=== PATIENT | female | born 1930 | race Caucasian/White ===

== ENCOUNTER → 2016-09-27 | Outpatient (CLI) | payer OTHER ==
[~2016-09-27] VITALS: Ht 160 cm; Wt 44.0 kg
[~2016-09-27] MED LIST: ACETAMINOPHEN-1 EAC1 PO; ALTACE10 M1 PO; ALTACE10 MG PO; ASPIRIN EC81 M1 PO; CALCIUM + VIT1 EACH PO; CENTRUM SILVER1 EAC4; FENTANYL PA50 MCG/HR TRANSDERM; FLONASE 0.05%50 MCG NASAL; LEVOTHYROXINE0.05 MG PO; LIPITOR PO; LIPITOR20 MG PO; MEGA RED PO; NASAL SPRAY30 ML; NORCO 5-325 TA1 EACH PO; PREDNISONE 20 M20 MG PO; PREVACID15 MG PO; PREVACID30 MG PO; REFRESH TEARS15 ML OPHTHALMIC; SINEMET 10-1001 EAC1; SINGULAIR 10 MG10 MG PO; SYSTANE 0.3-0.1 EACH GTT; VALIUM5 MG PO
--- NOTE | ~2016-09-27 | P ---
[facility] [place] [address] PROCEDURE REPORT Name: LEANNE DUFFY Room #: [facility] [id number] Admission: 09/27/16 Attend Phys: Preet Marin MD Discharge: Date of : 32 Report #: [id number] THIS REPORT FOR: //name// CC: Preet Reddy MD DATE OF SERVICE: 09/27/2016 BRIEF HISTORY: The patient is an 86-year-old woman well known to me with chronic, recurrent stricture upper esophagus for repeat dilation. PREOPERATIVE DIAGNOSES: Esophageal stricture and dysphagia. POSTOPERATIVE DIAGNOSES: 1. Moderately tight cervical esophageal stricture, benign appearing. 2. Small hiatus hernia. MEDICATIONS: Deep sedation with propofol per anesthesia. SPECIMEN: None. ESTIMATED BLOOD LOSS: About 3 mL. PROCEDURE: EGD with insertion of guidewire and Savary dilation of stricture over wire. FINDINGS: Prior to propofol sedation, procedure of upper endoscopy was discussed with the patient as well as potential risks and its complications. Upper endoscopy and dilation were discussed with the patient as well as potential risks, benefits and complications. She indicates she understands and desires to proceed. DESCRIPTION OF PROCEDURE: With the patient in left lateral decubitus position, we attempted to insert this Fuji video endoscope into the cervical esophagus; however, immediately upon entering the cricopharyngeus, there was a moderately tight stricture, which would not allow passage of the endoscope. I have been dilating this patient for over 20 years and in recent memory, I do not recall having this difficulty. The stricture was same, but I could see through the stricture, but the scope would not pass. It had smooth benign appearance. There was normal overlying mucosa. A Savary wire was advanced through the stricture and the scope withdrawn and she was dilated at 10, 11, 12 mm dilators. After passage of the 12 mm dilator, I was able to advance the scope easily through the strictured area. There were superficial mucosal tears on opposite carbajal within the stricture. However, these were extremely superficial and essentially some disruption of the mucosa. Examination of remainder of [facility] [address] [place] [address] PROCEDURE REPORT Name: LEANNE DUFFY Room #: REG [facility].#: [id number] Admission: 09/27/16 Attend Phys: Preet Marin MD Discharge: Date of : 32 Report #: [id number] esophagus revealed normal mucosa. The squamocolumnar junction was unremarkable. Intermittently, a small sliding hiatus hernia was seen. The scope was advanced into the stomach, which was examined on end view as well as retroflexed views. There was normal mucosa. On retroflexion, no mass lesions were seen. Pylorus, duodenal bulb and postbulbar sweep were inspected and noted to be unremarkable. At that point, the scope was slowly withdrawn and careful circumferential views were obtained. It is noted the guidewire had been left in place with the above described endoscopy. Following withdrawal of the scope, a 12.8 mm Savary dilator was advanced over the wire. It was felt best to determine the procedure at this point. Wire was withdrawn. The patient tolerated the procedure well. CONDITION OF THE PATIENT UPON DISCHARGE: Following procedure, the patient drowsy. She will be discharged home when fully ambulatory. INSTRUCTIONS TO THE PATIENT AND FAMILY AT THE TIME OF DISCHARGE: Tighter stenosis of her stricture than usual. She was dilated as described above. We will have her return in 2 weeks for repeat dilation. Consider biopsy at that time. She can continue her proton pump inhibitor. <ELECTRONICALLY SIGNED> By: Preet Marin MD 09/28/16 1615 [id number] [id number] Preet Marin MD /nt
== END | disposition home or self-care (01) ==
LOC: GI 06:38
DX: K22.2 Esophageal obstruction (principal); K44.9 Diaphragmatic hernia without obstruction or gangrene; I10 Essential (primary) hypertension; K21.9 Gastro-esophageal reflux disease without esophagitis; J45.909 Unspecified asthma, uncomplicated; F32.9 Major depressive disorder, single episode, unspecified; Z90.710 Acquired absence of both cervix and uterus; Z87.891 Personal history of nicotine dependence; Z98.42 Cataract extraction status, left eye; Z98.41 Cataract extraction status, right eye; Z96.1 Presence of intraocular lens; Z85.828 Personal history of other malignant neoplasm of skin; Z98.890 Other specified postprocedural states
CPT/HCPCS: 62110; 62900

== ENCOUNTER → 2016-10-15 | Outpatient (CLI) | payer OTHER ==
[~2016-10-15] VITALS: Ht 160 cm; Wt 44.0 kg
[~2016-10-15] MED LIST changes: +ACCUNEB SO1.25 MG/1 INH
--- NOTE | ~2016-10-15 | P ---
[facility] [place] [address] PROCEDURE REPORT Name: LEANNE DUFFY Room #: REG CARLIE DanteMigel#: [id number] Admission: 10/15/16 Attend Phys: Preet Marin MD Discharge: Date of : 32 Report #: [id number] THIS REPORT FOR: //name// CC: Preet Reddy MD DATE OF SERVICE: 10/15/2016 BRIEF HISTORY: The patient is an 86-year-old woman with known proximal esophageal stricture with recent worsening dysphagia requiring repeat dilation. She presents for followup dilation. PREOPERATIVE DIAGNOSIS: Recurring proximal esophageal stricture. POSTOPERATIVE DIAGNOSIS: Moderately tight proximal esophageal stricture. MEDICATIONS: Deep sedation with propofol per anesthesia. SPECIMEN: Biopsies of proximal esophageal stricture. ESTIMATED BLOOD LOSS: 3 mL. PROCEDURE: EGD with Savary dilation of esophageal stricture and biopsy of esophageal stricture. FINDINGS: Prior to propofol sedation, procedure of upper endoscopy was discussed. Upper endoscopy and dilation was reviewed with the patient as well as potential risks and its complications. She indicates she understands and desires to proceed. DESCRIPTION OF PROCEDURE: With the patient in left lateral decubitus position, the [place]i video endoscope was inserted in the cervical esophagus under direct vision without difficulty. Examination of this organ through its entire length revealed a moderately tight stricture at about 22 cm. It had a very smooth appearance. However, as we advanced the scope into the upper margin of the stricture, the scope would not pass. It is noted that in late September, she was dilated to 12 mm. A guidewire was inserted through biopsy of the channel to scope and she was subsequently dilated with passage of 11 and 12 mm dilators. We took a look after passage of the 12 and there was very superficial trauma, so we dilated 12.8 and once again superficial trauma, then we dilated with 14 mm guidewire guided dilator. It was felt best to stop at this point. A significant improvement had been made in the lumen of the stricture. Multiple biopsies were obtained. Examination of remainder of the esophagus revealed normal mucosa. The GE junction was normal. Examination of the stomach on end view as well as retroflexed views revealed normal mucosa, no evidence of ulcers [address] [address] PROCEDURE REPORT Name: LEANNE DUFFY Room #: REG [facility].#: [id number] Admission: 10/15/16 Attend Phys: Preet Marin MD Discharge: Date of : 32 Report #: [id number] or retained material. Upon retroflexion, no mass lesions were seen. The pylorus, duodenal bulb and postbulbar sweep were inspected and noted to be within normal limits. At that point, the scope was slowly withdrawn and careful circumferential views were obtained. The patient tolerated the procedure well. CONDITION OF THE PATIENT UPON DISCHARGE: Following procedure, the patient drowsy, aroused, conversant and will be discharged home when fully ambulatory. INSTRUCTIONS TO THE PATIENT AND FAMILY AT THE TIME OF DISCHARGE: Recurrent esophageal stricture. Disappointingly, she had strictured down again, but we were able to dilate her further than we did in late September. We will have her continue PPI and return in 2 weeks for her next dilating session. She does report that swelling has improved, but she still has to be very careful . <ELECTRONICALLY SIGNED> By: Preet Marin MD 10/15/16 1805 0807 [id number] Preet Marin MD /nt
--- NOTE | ~2016-10-15 | S ---
[facility] [place] [address] SURGICAL PATH RPT PROCEDURE Name: RENAE TAYLOR Room #: REG CARLIE Escalera.#: [id number] Admission: 10/15/16 Date of : 32 Discharge: Report #: [id number] Path Case #: [id number] PATHOLOGY REPORT COLLECTION DATE: 10/15/2016 RECEIVED DATE: 10/15/2016 SUBMITTING PHYS: Dr. Preet Marin OTHER PHYS: Dr. Joaquin Reddy SPECIMEN(S) RECEIVED: Hellen baxter * * * * * * * * * * * * FINAL DIAGNOSIS: "Proximal esophagus," biopsy: - Esophageal squamous mucosa with reactive changes and acute and chronic inflammation / esophagitis including mildly increased intraepithelial eosinophils; no dysplasia seen. (see comment) COMMENT: The mildly increased intraepithelial eosinophils are less than 10 per 1 hpf focally and are admixed with acute inflammatory cells. Therefore, eosinophilic esophagitis is considered less likely. A properly controlled special stain is performed. GMS (block A1): negative for fungal organisms Clinical and endoscopic correlation is required. (CLW:; d/t: 10/16/16) PATHOLOGIST: Georgie Ruggiero M.D. REPORT ELECTRONICALLY SIGNED BY: Georgie Ruggiero M.D. DATE/TIME: 10/17/2016 09:05 * * * * * * * * * * * * GROSS PATHOLOGY: Received in formalin labeled "Renae Taylor, proximal esophagus," are 7 segments of eddy soft tissue measuring 0.5 x 0.3 x 0.2 cm in aggregate dimensions and ranging from 0.2 to 0.5 cm in maximum dimension. The specimen is submitted entirely in cassette A1. (KAH; 10/15/2016) CLINICAL HISTORY: Esophagus stricture INITIAL CPT CODE(S): A; 31504, 50214, 02319 [facility] [address] [place] [address] SURGICAL PATH RPT PROCEDURE Name: RENAE TAYLOR [facility] [id number] Admission: 10/15/16 Date of : 32 Discharge: Report #: [id number] Path Case #: [id number] Professional services performed by [facility] at [address] , [place] [address] Technical services performed by [facility] at [address] [place] [address], [facility] [address] [place] [address]. [facility] [address] [place] [address] PHONE: [phone] DIRECTOR: Melvin Rodriguez M.D. * * * END OF REPORT * * *
== END ==
LOC: GI 06:26
DX: K22.2 Esophageal obstruction (principal); I10 Essential (primary) hypertension; J45.909 Unspecified asthma, uncomplicated; K21.9 Gastro-esophageal reflux disease without esophagitis; E03.9 Hypothyroidism, unspecified; E78.00 Pure hypercholesterolemia, unspecified; Z86.79 Personal history of other diseases of the circulatory system; Z95.4 Presence of other heart-valve replacement; Z85.828 Personal history of other malignant neoplasm of skin
CPT/HCPCS: 62110; 62900

== ENCOUNTER → 2021-01-27 | Outpatient (CLI) | payer OTHER ==
[~2021-01-27] VITALS: Ht 160 cm; Wt 46.7 kg
--- NOTE | ~2021-01-27 | P ---
[facility] [place] [address] PROCEDURE REPORT Name: LEANNE DUFFY Room #: REG CARLIE EscaleraMigel#: [id number] Admission: 01/27/21 Attend Phys: [place] Discharge: Date of : 32 Report #: [id number] THIS REPORT FOR: cc: Joaquin Reddy,Nixon Silveira MD ~ cc: Joaquin Reddy MD DATE OF SERVICE: 01/27/2021 PROCEDURE PERFORMED: Upper endoscopy with esophageal dilation. HISTORY OF PRESENT ILLNESS: The patient is an 89-year-old female with a long history of recurrent dysphagia due to benign stricture of the upper esophagus. Dr. Marin, my partner, has dilated the patient multiple times over the years, last one being 08/05/2019, dilated to a max of 42-Italian at that time. She now has recurrent dysphagia. Plan is for repeat upper endoscopy with dilation. DESCRIPTION OF PROCEDURE: The risks and benefits of the procedure were explained to the patient, those risks including but not limited to bleeding, perforation and the risk of sedation. She understood these risks and gave informed consent. Sedation was given using propofol per anesthesia. Next, using a standard Olympus upper endoscope, the scope was placed in the patient's mouth and advanced under direct vision through the esophagus, stomach and into the second portion of the duodenum. The larynx was normal in appearance. Again, in the proximal esophagus, there is a benign-appearing stricture. There was some resistance passing the scope through the stricture, but I was able to pass the scope through. The mid and distal esophagus were normal. Upon entering the stomach, a small hiatal hernia was noted. Overall, the gastric mucosa was normal. The pylorus was normal and patent. The duodenal bulb, first and second portion were all normal. The scope was then brought back up into the patient's stomach and a Savary guidewire was inserted through the scope, leaving the guidewire in place as the scope was then withdrawn. Next, a 39-Italian Savary dilation was then performed of the esophagus without difficulty. The dilator was removed. The scope was reintroduced into the patient's esophagus. There was a mucosal tear after dilation. No evidence of bleeding. I did not proceed with any further dilation after 39-Italian. At this point, the wire and the scope were removed and the procedure terminated. The patient tolerated the procedure well. IMPRESSION: 1. Stricture proximal esophagus, status post dilation. 2. Small hiatal hernia. 3. Otherwise, normal upper endoscopy. RECOMMENDATIONS: Observe the patient post-dilation, repeat on a p.r.n. basis. [address] [address] PROCEDURE REPORT Name: LEANNE DUFFY Room #: REG CARLIE Espinoza#: [id number] Admission: 01/27/21 Attend Phys: [place] Discharge: Date of : 32 Report #: [id number] Thank you for allowing me to participate in her care. By: [id number] [id number] Nixon Cranadll MD /kaitlin
== END | disposition home or self-care (01) ==
LOC: GI 09:01
PROVIDERS: ATTEND Specialist
DX: R13.10 Dysphagia, unspecified (principal); K22.2 Esophageal obstruction; K44.9 Diaphragmatic hernia without obstruction or gangrene; K21.9 Gastro-esophageal reflux disease without esophagitis; I10 Essential (primary) hypertension; E03.9 Hypothyroidism, unspecified; E78.00 Pure hypercholesterolemia, unspecified; Z98.890 Other specified postprocedural states; Z79.899 Other long term (current) drug therapy; Z85.820 Personal history of malignant melanoma of skin; Z79.01 Long term (current) use of anticoagulants; Z95.2 Presence of prosthetic heart valve; Z88.0 Allergy status to penicillin; Z88.8 Allergy status to other drugs, medicaments and biological substances; Z88.2 Allergy status to sulfonamides
CPT/HCPCS: 62110; 62900